=== PATIENT | male | born 1950 | race Caucasian/White ===

== ENCOUNTER → 2017-08-02 | Outpatient (CLI) | payer OTHER, MEDICARE ==
[2017-08-02 17:52] LABS: BASO % 0.2 %; BASO ABS # 0.02 K/uL (0-0.2); EOS % 3.1 %; EOS ABS # 0.28 K/uL (0-0.5); HEMATOCRIT 41.1 % (42-52); HEMOGLOBIN 13.3 g/dL (14.0-18.0); IG# 0.02 K/uL (0.00-0.02); LYMPH % 13.7 %; LYMPH ABS # 1.25 K/uL (1.2-3.4); MEAN CELL VOLUME 86.3 fL (80-100); MEAN CORPUSCULAR HEMOGLOBIN 27.9 pg (25-34); MEAN CORPUSCULAR HGB CONC 32.4 g/dl (32-36); MEAN PLATELET VOLUME 10.8 fL (7.4-10.4); MONO % 10.8 %; MONO ABS # 0.99 K/uL (0.11-0.59); NEUT ABS # 6.58 K/uL (1.4-6.5); PLATELET COUNT 125 K/uL (130-400); RED CELL DISTRIBUTION WIDTH CV 14.6 % (11.5-14.5); RED CELL DISTRIBUTION WIDTH SD 45.7 fL (36.4-46.3); WHITE BLOOD COUNT 9.14 K/uL (4.8-10.8)
[2017-08-02 18:26] LABS: BLOOD UREA NITROGEN 20 mg/dl (7-18); CALCIUM 8.9 mg/dl (8.5-10.1); CARBON DIOXIDE 29 mmol/L (21-32); CREATININE 1.21 mg/dl (0.60-1.40); GLUCOSE 107 mg/dl (70-99); LIPASE 465 U/L (73-393); POTASSIUM 4.2 mmol/L (3.5-5.1); SODIUM 138 mmol/L (136-145)
== END | disposition home or self-care (01) ==
LOC: C.LABMFLN 13:31
PROVIDERS: ATTEND Family Medicine
DX: K85.90 Acute pancreatitis without necrosis or infection, unspecified (principal)

== ENCOUNTER → 2017-08-12 | Outpatient (CLI) | payer OTHER, MEDICARE | END | disposition home or self-care (01) | LOC: C.LABMFLN 12:13 | PROVIDERS: ATTEND Family Medicine | DX: K85.90 Acute pancreatitis without necrosis or infection, unspecified (principal) ==